=== PATIENT | female | born 1990 ===

== ENCOUNTER 2025-08-07 13:50 | Outpatient (CLI) | payer OTHER, SELFPAY ==
--- NOTE | 2025-08-07 14:00 | CRLHL7_ITS ---
For Patients: As a result of the Cures Act, medical imaging exams and procedure reports are released immediately into your electronic medical record. You may view this report before your referring provider. If you have questions, please contact your health care provider. OB ULTRASOUND LESS THAN 14 WEEKS CLINICAL HISTORY: Dating and viability. TECHNIQUE: Grayscale and color Doppler ultrasound of the uterus and ovaries from a transabdominal and transvaginal approach. Transvaginal ultrasound of the pelvis was performed to better evaluate the genitourinary organs such as the ovaries and/or endometrium. COMPARISON: None. FINDINGS: Imaging: TV. LMP: 06/08/2025. JIMBO by LMP: 03/15/2026. GA: 8 weeks 4 days. CRL: 1.7 cm, 8 weeks 1 day. JIMBO: 03/18/2025. FHR: 169 bpm. GEST SAC: 3.9 cm, appears WNL. YOLK SAC: 3.1 mm, appears WNL. RIGHT OV: 4.1 x 2.6 x 3.4 cm. CL. LEFT OV: 2.8 x 1.2 x 1.9 cm. IMPRESSION: 1. Single living intrauterine measures 8 weeks 1 day with sonographic due date 03/18/2026. 2. Subchorionic hemorrhage measures 2.2 x 2.0 x 2.8 cm. Grayson Simental M.D. Diagnostic Radiologist [email or web address] Transcribed: 2:54 pm DW/Dictated by: Grayson Simental MD @ 08/07/2025 2:44:00 PM (Electronically Signed)
== END 2025-08-07 13:51 | disposition home or self-care (01) ==
LOC: US 13:51
PROVIDERS: Visit Provider Physician Assistant
DX: O20.9 Hemorrhage in early pregnancy, unspecified (principal); Z3A.08 8 weeks gestation of pregnancy; Z34.91 Encounter for supervision of normal pregnancy, unspecified, first trimester
CPT/HCPCS: 76817

== ENCOUNTER 2025-08-07 15:09 | Outpatient (CLI) | payer OTHER, SELFPAY ==
[2025-08-07 20:07] LABS: Chlamydia DNA Amplified* NOT DETECTED (No Detected); GC DNA Amplified* NOT DETECTED (No Detected)
== END 2025-08-07 15:10 | disposition home or self-care (01) ==
PROVIDERS: Visit Provider Physician Assistant
DX: Z34.81 Encounter for supervision of other normal pregnancy, first trimester (principal); Z3A.01 Less than 8 weeks gestation of pregnancy
CPT/HCPCS: 83020; 83021; 85660; 86592; 86703; 86704; 86706; 86762; 86787; 86803; 86850; 86900; 86901; 87086; 87340; 87491; 87591